=== PATIENT | male | born 1945 | race Caucasian/White ===

== ENCOUNTER → 2016-10-15 | Outpatient (CLI) | payer MEDICARE, OTHER ==
[2016-10-15 14:16] LABS: BASOPHILS % (AUTO) 0 % (0-2); EOSINOPHILS # (AUTO) 0.3 10^3uL; EOSINOPHILS % (AUTO) 7 % (0-4); MEAN CORPUSCULAR HGB CONC 34.8 g/dL (31.0-37.0); MEAN PLATELET VOLUME 9.8 FL (6.0-9.5); MONOCYTES # (AUTO) 0.5 X10^3; MONOCYTES % (AUTO) 10 % (3-11); NEUTROPHILS # (AUTO) 2.4 X10^3; NEUTROPHILS % (AUTO) 45 % (51-67); PLATELET COUNT 51 10^3uL (150-450); WHITE BLOOD COUNT 5.27 10^3uL (4.0-11.0)
[2016-10-15 14:20] LABS: ABSOLUTE RETIC # 69 10^3uL (22-82); MEAN CORPUSCULAR HEMOGLOBIN 37.8 PG (26.0-34.0); MEAN CORPUSCULAR VOLUME 109 FL (80-100)
[2016-10-15 14:41] LABS: ALBUMIN 4.3 g/dL (3.4-5.0); CALCULATED IONIZED CALCIUM 3.9 mg/dL (3.8-4.6); TOTAL PROTEIN 7.4 g/dL (6.4-8.5)
[2016-10-15 17:49] LABS: IRON 103 ug/dL (65-175); UNBOUND IRON CONTENT 175 ug/dl (126-382)
[2016-10-15 18:20] LABS: HEPATITIS A ANTIBODY IGM Negative; HEPATITIS B CORE ABY IGM Negative; HEPATITIS B SURFACE ANTIGEN C Negative; VITAMIN B 12 286 pg/mL (213-816)
[2016-10-18 10:45] LABS: KAPPA LIGHT CHAINS SERUM 1.91 mg/dL
== END ==
LOC: LAB 13:55
PROVIDERS: ATTEND Internal Medicine Hematology & Oncology
DX: D69.6 Thrombocytopenia, unspecified (principal); D53.9 Nutritional anemia, unspecified; R53.83 Other fatigue
CPT/HCPCS: 36415; 80053; 80074; 82607; 82728; 82746; 82784; 83010; 83540; 83550; 83615; 83883; 84155; 84443; 85025; 85045; 86334

== ENCOUNTER → 2016-10-18 | Outpatient (CLI) | payer MEDICARE, OTHER | LOC: RAD 07:15 | PROVIDERS: ATTEND Surgery | DX: K82.1 Hydrops of gallbladder (principal); K80.20 Calculus of gallbladder without cholecystitis without obstruction | CPT/HCPCS: 76705 ==

== ENCOUNTER 2016-10-28 06:27 | Day surgery (SDC) | payer MEDICARE, OTHER ==
[~2016-10-28] VITALS: Ht 182.9 cm; Wt 95.0 kg
[~2016-10-28 06:27] MED LIST: LACTATED RINGERS 1,000 ML IV SCH; SODIUM CHLORIDE FLUSH 3 ML SYR IV PRN
[2016-10-28 06:40] VITALS: BP 127/87
--- NOTE | 2016-10-28 07:00 | NUR ---
AUDIBLE WHEEZING NOTED DURING IV START. WHEEZES TO LEFT UPPER LOBE AND RIGHT LOWER LOBE UPON AUSCULTATION.
[2016-10-28] MEDS ORDERED: MIDAZOLAM 2 MG/2 ML (VERSED) VIAL ONE (07:12)
[2016-10-28] MEDS ORDERED: ALFENTANIL 500 MCG/ML (ALFENTA) 5 ML AMP IV ONE (07:13)
[2016-10-28] MEDS ORDERED: PROPOFOL 20 ML IV ONE (07:13)
--- NOTE | 2016-10-28 07:15 | NUR ---
WHEEZING REPORTED TO NATASHA HERNADEZ. NEW ORDERS RECEIVED. SEE EMAR.
[2016-10-28] MEDS ORDERED: ALBUTEROL 0.083% NEB SOLUTION 2.5 MG/3 ML VIAL INH ONE (07:20)
[2016-10-28 08:22] VITALS: BP 127/64
[2016-10-28 08:38] VITALS: BP 109/65
== END 2016-10-28 08:56 | disposition home or self-care (01) ==
LOC: ASC 06:27
PROVIDERS: ATTEND Surgery
DX: Z12.11 Encounter for screening for malignant neoplasm of colon (principal); Z79.01 Long term (current) use of anticoagulants; Z86.718 Personal history of other venous thrombosis and embolism; K64.8 Other hemorrhoids; I10 Essential (primary) hypertension; K40.90 Unilateral inguinal hernia, without obstruction or gangrene, not specified as recurrent; J45.909 Unspecified asthma, uncomplicated; K80.20 Calculus of gallbladder without cholecystitis without obstruction; I25.10 Atherosclerotic heart disease of native coronary artery without angina pectoris
CPT/HCPCS: 36415; 85610; 93005; 94640; G0121; J2250; J7120; J7613

== ENCOUNTER → 2016-11-09 | Outpatient (CLI) | payer MEDICARE, OTHER | LOC: LAB 10:07 | PROVIDERS: ATTEND Internal Medicine Hematology & Oncology | DX: D53.9 Nutritional anemia, unspecified (principal); D69.6 Thrombocytopenia, unspecified | CPT/HCPCS: 36415; 83090; 83921 ==

== ENCOUNTER → 2016-11-10 | Outpatient (CLI) | payer MEDICARE, OTHER | LOC: RAD 09:56 | PROVIDERS: ATTEND Internal Medicine Hematology & Oncology | DX: D53.9 Nutritional anemia, unspecified (principal); K80.20 Calculus of gallbladder without cholecystitis without obstruction | CPT/HCPCS: 76705 ==

== ENCOUNTER 2016-12-03 07:42 | Day surgery (SDC) | payer MEDICARE, OTHER ==
[~2016-12-03] VITALS: Ht 182.9 cm; Wt 97.0 kg
[~2016-12-03 07:42] MED LIST changes: +ALBU8.5H6 INH; +ALLP300T PO; +CLOP75TA3 PO; +ENAL2.5T37 PO; +FLUT1DIS3 INH; +METO-270 PO; +NITR0.3T6 SL; +SIMV40TA2 PO; +WARF6TAB3 PO
--- OUTSIDE RECORDS SUMMARY | 2016-12-03 07:46 | XMS REPORT | Continuity of Care Document ---
Author Author [facility] Address Unknown Phone Unavailable Care Team Providers Care Contract Graphic Designer Name Role Phone DAVIDGABRIELLE MD PCP [phone] Insurance Providers Payer Name Policy Number Subscriber Name Relationship Medicare A And B [id number] Isiah Fleming 16 Self / Same As Patient [employer] [id number] Isiah Fleming 16 Self / Same As Patient Advance Directives Directive Response Recorded Date/Time Advanced Directives Yes 10/28/16 6:40am Type Durable Power of Sand Blaster 10/28/16 6:40am Type Living Will 10/28/16 6:40am Other Maricarmen Kuldeep- 10/28/16 6:40am Problems Active Problems Medical Problem Onset Date Status Encounter for screening colonoscopy Unknown Acute Flank pain 07/19/2012 Acute Medications Current Home Medications Medication Dose Units Route Directions Days/Qty Instructions Start Date Allopurinol 300 Mg 300 Mg ORAL Daily 07/19/12 Enalapril Maleate 2.5 Mg 2.5 Mg ORAL Daily 07/19/12 Metoprolol Succinate 25 Mg 25 Mg ORAL Daily 07/19/12 Simvastatin (Zocor) 40 Mg 40 Mg ORAL Daily 07/19/12 Fluticasone/Salmeterol 1 Each 2 Puff RESPIRATORY (INHALATION) Twice A Day 07/19/12 Albuterol Sulfate 1 Inhaler 1 Puff RESPIRATORY (INHALATION) As Needed 07/19/12 Nitroglycerin (Nitroquick) 0.3 Mg 0.4 Mg SUBLINGUAL As Needed Warfarin (Coumadin) 6 Mg 6 Mg ORAL Daily 10/27/16 Past Home Medications Medication Directions Ordered Status Clopidogrel Bisulfate 75 Mg Tablet, 75 Mg Oral Daily 07/19/12 Discontinued Social History Social History Problem Response Recorded Date/Time Onset Date Status 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 Plan of Care Discharge Date 10/28/16 8:56am Prescriptions See Medication Section Functional Status No functional status results. Allergies, Adverse Reactions, Alerts Allergen Type Severity Reaction Status Last Updated Penicillin Allergy Unknown Active 10/26/16 Codeine Allergy Unknown Active 10/26/16 Immunizations No immunization records. Vital Signs Acute Vital Signs Vital Response Date/Time Temperature (Fahrenheit) 97.7 10/28/2016 8:38am Pulse 69 bpm 10/28/2016 8:38am Respirations 18 10/28/2016 8:38am Height 6 ft 0 in Weight 209 lb Body Mass Index 28.0 kg/m^2 Results Pending Laboratory Results Test Name Collection Date/Time Procedures Procedure Status Date Provider(s) ECHO EXAM OF ABDOMEN Completed 10/18/16 ROUTINE VENIPUNCTURE Completed 10/15/16 COMPREHEN METABOLIC PANEL Completed 10/15/16 ACUTE HEPATITIS PANEL Completed 10/15/16 VITAMIN B-12 Completed 10/15/16 ASSAY OF FERRITIN Completed 10/15/16 ASSAY OF FOLIC ACID SERUM Completed 10/15/16 ASSAY IGA/IGD/IGG/IGM EACH Completed 10/15/16 ASSAY IGA/IGD/IGG/IGM EACH Completed 10/15/16 ASSAY OF HAPTOGLOBIN QUANT Completed 10/15/16 ASSAY OF IRON Completed 10/15/16 IRON BINDING TEST Completed 10/15/16 LACTATE (LD) (LDH) ENZYME Completed 10/15/16 ASSAY NEPHELOMETRY NOT SPEC Completed 10/15/16 ASSAY OF PROTEIN SERUM Completed 10/15/16 ASSAY THYROID STIM HORMONE Completed 10/15/16 COMPLETE CBC W/AUTO DIFF WBC Completed 10/15/16 AUTOMATED RETICULOCYTE COUNT Completed 10/15/16 IMMUNOFIX E-PHORESIS SERUM Completed 10/15/16 Encounters Encounter Location Arrival/Admit Date Discharge/Depart Date Attending Provider Departed [facility] 10/28/16 6:27am 10/28/16 8: 56am INDIRA MAJANO MD Registered Clinic [facility] 10/18/16 7:15am INDIRA MAJANO MD Registered Clinic [facility] 10/15/16 1:55pm ARAVIND MARIE MD
[2016-12-03 07:54] VITALS: BP 140/80
[2016-12-03] MEDS ORDERED: ASPI-860 PO (08:17)
[2016-12-03] MEDS ORDERED: LIDOCAINE/EPINEPHRINE 1% 1:100,000 (XYLOCAINE) 30 ML VIAL INJ ONE (08:20)
[2016-12-03] MEDS ORDERED: ROPIVACAINE 0.2% 100 ML ONE (08:21)
[2016-12-03] MEDS ORDERED: MIDAZOLAM 2 MG/2 ML (VERSED) VIAL ONE (08:56)
[2016-12-03] MEDS ORDERED: PROPOFOL 20 ML IV ONE (08:56)
[2016-12-03] MEDS ORDERED: PROPOFOL 40 ML IV ONE (08:56)
[2016-12-03] MEDS ORDERED: REMIFENTANIL 1 MG (ULTIVA) VIAL IV ONE (08:56)
[2016-12-03] MEDS ORDERED: NALOXONE 0.4 MG/ML (NARCAN) 1 ML VIAL ONE (10:15)
[2016-12-03] MEDS ORDERED: FLUMAZENIL (ROMAZICON) 0.1 MG/ML 5 ML VIAL ONE (10:15)
[2016-12-03 10:33] VITALS: BP 138/65
[2016-12-03 10:55] VITALS: BP 114/81
[2016-12-03] MEDS ORDERED: ONDANSETRON 2 MG/ML (Z0FRAN) 2 ML VIAL IV PRN (11:08)
[2016-12-03] MEDS ORDERED: METOCLOPRAMIDE 10 MG/2 ML (REGLAN) VIAL IV PRN (11:08)
[2016-12-03] MEDS ORDERED: morphine INJ 4 MG/ML 1 ML SYRINGE IV PRN (11:08)
[2016-12-03 11:10] VITALS: BP 133/53
[2016-12-03] MEDS ORDERED: KETOROLAC 15 MG/ML (TORADOL) 1 ML VIAL IV PRN (11:20)
[2016-12-03 11:35] VITALS: BP 139/80
--- NOTE | 2016-12-03 12:17 | OPERATIVE REPORT ---
DATE OF OPERATION: 12/03/2016 PRE-OPERATIVE DIAGNOSIS: Left inguinal hernia. POST-OPERATIVE DIAGNOSIS: 1. Left inguinal hernia. 2. Cord lipoma. OPERATIVE PROCEDURE: 1. Left inguinal hernia repair with mesh. 2. Excision of cord lipoma. SURGEON: David Estrada MD MATE SHIP: Isela Leblanc RN ANESTHESIA: Monitored anesthesia care with local. INDICATIONS: The patient is a 71-year-old referred by Dr. Motta with a symptomatic left inguinal hernia that he wishes to have repaired. He presents today for repair. DESCRIPTION OF PROCEDURE: The patient was informed of the risks and benefits and agreed to proceed. He was taken to the operating room and placed supine on standard operating table. He was administered IV sedation. When properly sedated his left groin was prepped and draped in standard sterile fashion. 1% lidocaine with epinephrine was injected in the skin above the left inguinal ligament and a ilioinguinal nerve block was applied with the same agent. A transverse incision was then made above the inguinal ligament with a #15 blade scalpel. Dissection was carried forth with electrocautery into the subcutaneous tissue. Superficial epigastric vein was ligated and divided. The external oblique fascia was exposed and the retractor was applied. This fascia was opened longitudinally to the externa inguinal ring and the contents of the inguinal canal were bluntly dissected away from the under surface of the fascia. The retractors were repositioned. Blunt dissection was used to encircle the spermatic cord at the pubic tubercle and this was elevated anteriorly with the Oneil drain. Additional lidocaine was injected within the cord prior to this maneuver. Careful dissection was then used to separate a cord lipoma from the spermatic cord contents. This lipoma was ligated proximally, divided, and removed. The cord was completely skeletonized and there was no hernia sac seen coming from the internal inguinal ring. The floor of the inguinal canal was very lax and attenuated, and this was thought to represent to hernia defect that was felt on exam. A mesh patch was placed over the floor and cut to the appropriate size. The mesh used was Ultrapro. This was sutured medially to the fascia overlying the pubic tubercle with interrupted 2-0 Prolene, inferiorly to the shelving edge of the inguinal ligament, and superiorly to the internal oblique muscle. A slit was cut laterally to accommodate the cord and this was reapproximated laterally with Prolene to recreate the internal inguinal ring. The mesh lay without any tension and covered the entire inguinal floor adequately. It was trimmed to the appropriate size inferiorly. The Oneil drain was removed and the external oblique fascia was closed with running 2-0 Vicryl. I could not palpate a femoral hernia. The Q pump catheter was inserted into the would from above and secured to the skin with Dermabond and Steri-Strips. Vineet's fascia was closed with interrupted 3-0 Vicryl and the skin was closed with subcuticular 4-0 Monocryl. A dressing was applied. The patient tolerated the procedure without complications.
== END 2016-12-03 11:45 | disposition home or self-care (01) ==
LOC: ASC 07:42
PROVIDERS: ATTEND Surgery
DX: K40.90 Unilateral inguinal hernia, without obstruction or gangrene, not specified as recurrent (principal); D17.6 Benign lipomatous neoplasm of spermatic cord; I73.9 Peripheral vascular disease, unspecified; Z79.01 Long term (current) use of anticoagulants
CPT/HCPCS: 36415; 49505; 85610; 88304; A4649; C1781; J2250; J2310; J2795; J3490; J7120

== ENCOUNTER → 2017-01-31 | Outpatient (CLI) | payer MEDICARE, OTHER ==
[~2017-01-31] MED LIST changes: +ASPI-860 PO; -LACTATED RINGERS 1,000 ML IV SCH; -SODIUM CHLORIDE FLUSH 3 ML SYR IV PRN
[2017-01-31 10:45] LABS: BASOPHILS % (AUTO) 1 % (0-2); EOSINOPHILS # (AUTO) 0.3 10^3uL; EOSINOPHILS % (AUTO) 8 % (0-4); LYMPHOCYTES # (AUTO) 1.6 X10^3; MEAN CORPUSCULAR HGB CONC 34.3 g/dL (31.0-37.0); MEAN PLATELET VOLUME 10.4 FL (6.0-9.5); MONOCYTES # (AUTO) 0.4 X10^3; MONOCYTES % (AUTO) 8 % (3-11); NEUTROPHILS # (AUTO) 1.8 X10^3; NEUTROPHILS % (AUTO) 43 % (51-67); WHITE BLOOD COUNT 4.17 10^3uL (4.0-11.0)
[2017-01-31 12:10] LABS: MEAN CORPUSCULAR VOLUME 110 FL (80-100)
[2017-01-31 12:11] LABS: MEAN CORPUSCULAR HEMOGLOBIN 37.7 PG (26.0-34.0); PLATELET COUNT 44 10^3uL (150-450)
== END ==
LOC: LAB 10:01
PROVIDERS: ATTEND Internal Medicine Hematology & Oncology
DX: D50.9 Iron deficiency anemia, unspecified (principal)
CPT/HCPCS: 36415; 85025